=== PATIENT | male | born 1950 | race Caucasian/White ===

== ENCOUNTER 2020-04-17 09:17 | Day surgery (SDC) | payer MEDICARE ==
[2020-04-16 14:01] LABS: BASOPHILS % (AUTO) 0.7 % (0-1); EOSINOPHILS # (AUTO) 0.1 X10'3 (0-0.9); HEMATOCRIT 38.3 % (42.0-52.0); LYMPHOCYTES # (AUTO) 1.9 X10'3 (1.1-4.8); LYMPHOCYTES % (AUTO) 31.3 % (21-51); MEAN CORPUSCULAR HEMOGLOBIN 33.7 PG (27.0-31.0); MEAN CORPUSCULAR HGB CONC 33.8 g/dL (33.0-36.5); MEAN CORPUSCULAR VOLUME 99.6 FL (78-98); MEAN PLATELET VOLUME 7.1 FL (7.4-10.4); MONOCYTES # (AUTO) 0.7 X10'3 (0-0.9); MONOCYTES % (AUTO) 11.1 % (2-12); NEUTROPHILS # (AUTO) 3.3 X10'3 (1.8-7.7); NEUTROPHILS % (AUTO) 54.9 % (42-75); PLATELET COUNT 275 X10'3 (140-440); RED BLOOD COUNT 3.85 X10'6 (4.70-6.10); RED CELL DISTRIBUTION WIDTH 13.2 % (11.5-14.5)
[2020-04-16 14:08] LABS: ALBUMIN 4.1 G/DL (3.4-5.0); ANION GAP 8 (8-16); BLOOD UREA NITROGEN 20 MG/DL (7-18); BUN/CREATININE RATIO 18.9 (5.4-32.0); CALCIUM 9.4 MG/DL (8.5-10.1); CHLORIDE 105 MMOL/L (99-107); CREATININE 1.06 MG/DL (0.60-1.10); GLUCOSE 70 MG/DL (70-104); POTASSIUM 4.4 MMOL/L (3.5-5.1); SODIUM 138 MMOL/L (135-145); TOTAL CARBON DIOXIDE 25.5 MMOL/L (24-32); eGFR 69 ML/MIN
[2020-04-16 14:12] LABS: PARTIAL THROMBOPLASTIN TIME 26 SECONDS (22-32)
[2020-04-17] VITALS (11 sets, daily range): BP systolic 97–146; BP diastolic 48–72
[~2020-04-17] VITALS: Ht 177.8 cm; Wt 86.0 kg
[2020-04-17] MEDS ORDERED: acetylcysteine 200 MG/ml 4ml vial PO PRN (09:40)
[2020-04-17] MEDS ORDERED: diphenhydrAMINE 25mg capsule PO PRN (09:45)
[2020-04-17] MEDS ORDERED: normal saline 1,000 ML IV SCH (09:45)
[2020-04-17] MEDS ORDERED: SIMV-42 PO (09:55)
[2020-04-17] MEDS ORDERED: METF-437 PO (09:55)
[2020-04-17] MEDS ORDERED: ALBU18HF2 (09:55)
[2020-04-17] MEDS ORDERED: GLIP10TA11 PO (09:55)
[2020-04-17] MEDS ORDERED: ACET-1017 PO (09:58)
[2020-04-17] MEDS ORDERED: CHOL50004 PO (09:58)
[2020-04-17] MEDS ORDERED: NOVRI SQ (09:58)
[2020-04-17] MEDS ORDERED: ASPI-1265 PO (09:58)
[2020-04-17] MEDS ORDERED: midazolam 2 mg/2 ml injection ONE (10:00)
[2020-04-17] MEDS ORDERED: verapamil 2.5 mg/ml inj IV ONE (10:00)
[2020-04-17] MEDS ORDERED: heparin 1,000unit/ml 10ml vial 10 ML ONE (10:00)
[2020-04-17] MEDS ORDERED: LIDOcaine 1% (10mg/ml)w/preservative injection 20ml MDV ONE (10:00)
[2020-04-17] MEDS ORDERED: LIDOcaine/PRILOcaine 5gm cream TP ONE (10:00)
[2020-04-17] MEDS ORDERED: LORazepam 0.5 MG tablet PO PRN (10:00)
[2020-04-17] MEDS ORDERED: fentaNYL/PF 50MCG/1 ML 2ML syringe ONE (10:00)
[2020-04-17] MEDS ORDERED: nitroGLYCERIN-Tridil 50MG/D5W 250 ML IV ONE (10:00)
[2020-04-17] MEDS ORDERED: iohexol 350 MG/ML 50ML vial IV ONE (10:00)
[2020-04-17] MEDS ORDERED: iohexol 350MG/ML 100ml bottle IV ONE (10:01)
[2020-04-17 12:21] LABS: ISTAT HGB ART 12.6 g/dl (14.0-18.0); ISTAT Hct ART 37 %PCV (42-52); ISTAT O2 SATURATION ARTERIAL 97 % (95-98); ISTAT SOURCE ART
== END 2020-04-17 17:00 | disposition home or self-care (01) ==
LOC: SSTAY O 09:17
PROVIDERS: ATTEND Internal Medicine Cardiovascular Disease
DX: R94.39 Abnormal result of other cardiovascular function study (principal); I25.10 Atherosclerotic heart disease of native coronary artery without angina pectoris; J44.9 Chronic obstructive pulmonary disease, unspecified; E78.5 Hyperlipidemia, unspecified; I44.1 Atrioventricular block, second degree; I48.91 Unspecified atrial fibrillation; E11.9 Type 2 diabetes mellitus without complications; Z79.01 Long term (current) use of anticoagulants; Z79.84 Long term (current) use of oral hypoglycemic drugs; Z79.82 Long term (current) use of aspirin; Z79.899 Other long term (current) drug therapy; Z98.890 Other specified postprocedural states; Z87.891 Personal history of nicotine dependence; Z80.9 Family history of malignant neoplasm, unspecified
CPT/HCPCS: 36415; 80048; 82803; 82948; 85014; 85025; 85610; 85730; 93005; 93460; 99152; 99153; C1769; C1894; J1644; J2001; J2250; J3010; J7030; Q0163; Q9967; 76937; A4620; A5120; A6258; C1751; J3490

== ENCOUNTER 2022-09-03 11:58 | Day surgery (SDC) | payer MEDICARE, MEDICAID ==
[2022-08-28 12:07] LABS: BASOPHILS % (AUTO) 0.5 % (0-1); EOSINOPHILS # (AUTO) 0.2 X10'3 (0-0.9); EOSINOPHILS % (AUTO) 2.5 % (0-6); LYMPHOCYTES # (AUTO) 1.4 X10'3 (1.1-4.8); LYMPHOCYTES % (AUTO) 19.7 % (21-51); MEAN CORPUSCULAR HEMOGLOBIN 32.6 PG (27.0-31.0); MEAN CORPUSCULAR HGB CONC 33.3 g/dL (33.0-36.5); MEAN CORPUSCULAR VOLUME 98.2 FL (78-98); MEAN PLATELET VOLUME 7.1 FL (7.4-10.4); MONOCYTES # (AUTO) 0.6 X10'3 (0-0.9); MONOCYTES % (AUTO) 8.5 % (2-12); NEUTROPHILS # (AUTO) 4.7 X10'3 (1.8-7.7); NEUTROPHILS % (AUTO) 68.8 % (42-75); PRE OP HEMATOCRIT 39.8 % (42.0-52.0); PRE OP HEMOGLOBIN 13.2 g/dL (14.0-17.9); PRE OP PLATELET COUNT 323 X10'3 (140-440); RED BLOOD COUNT 4.06 X10'6 (4.70-6.10); RED CELL DISTRIBUTION WIDTH 13.8 % (11.5-14.5)
[2022-08-28 12:34] LABS: ALBUMIN 4.3 G/DL (3.4-5.0); ALBUMIN/GLOBULIN RATIO 1.2 (1.1-1.5); ALKALINE PHOSPHATASE 75 IU/L (46-116); BLOOD UREA NITROGEN 32 MG/DL (7-18); BUN/CREATININE RATIO 28.1 (10.0-20.0); CALCIUM 9.1 MG/DL (8.5-10.1); CHLORIDE 103 MMOL/L (99-107); CREATININE 1.14 MG/DL (0.60-1.10); PRE OP ALT 40 U/L (30-65); PRE OP ANION GAP 11 (8-16); PRE OP AST 21 U/L (10-37); PRE OP BILIRUB, TOTAL 0.4 MG/DL (0.0-1.0); PRE OP GLUCOSE 79 MG/DL (70-104); PRE OP POTASSIUM 4.3 MMOL/L (3.4-5.1); PRE OP SODIUM 139 MMOL/L (135-145); TOTAL CARBON DIOXIDE 25.5 MMOL/L (24-32); TOTAL PROTEIN 7.9 G/DL (6.4-8.2); eGFR 63 ML/MIN
[~2022-09-03] VITALS: Ht 180.3 cm; Wt 83.2 kg
[~2022-09-03 11:58] MED LIST: ALBU18HF2 IH; ASPI-1265 PO; DICL100G30 TOP; GLYB1.253 PO; INSU100I31 SQ; KEN0.1O TOP; LISI5TAB22 PO; METF-438 PO; SIMV10TA98 PO; TIOT18CA3 INH; albuterol 2.5 MG/3 ML nebule NEB ONE; cefazolin 2gm/D5W 100mL 100 ML IV ONE; famotidine 20mg tablet PO ONE; ringers solution, lacted 1,000 ML IV SCH
[2022-09-03 13:48] VITALS: BP 145/89
[2022-09-03] MEDS ORDERED: LIDOcaine 1% 30ml preserv. free vial ONE (16:57)
[2022-09-03] MEDS ORDERED: BUPIVAcaine/PF 2.5 mg/ml (0.25%) 30ml vial ONE (16:57)
[2022-09-03] MEDS ORDERED: sevoflurane 250ml liquid IH ONE (17:13)
[2022-09-03] MEDS ORDERED: fentaNYL/PF 50MCG/1 ML 2ML syringe ONE (17:15)
[2022-09-03] MEDS ORDERED: midazolam 1 mg/ML 2ml injection ONE (17:16)
[2022-09-03] MEDS ORDERED: propofol inj 20 ML IV ONE (17:16)
[2022-09-03] MEDS ORDERED: BUPIVAcaine/PF 2.5 mg/ml (0.25%) 30ml vial IJ ONE (17:44)
[2022-09-03] MEDS ORDERED: LIDOcaine 1% 30ml preserv. free vial IJ ONE (17:46)
[2022-09-03] MEDS ORDERED: HYDROcodone/acetaminophen 5mg/325mg tablet PO PRN (18:10)
[2022-09-03 18:16] VITALS: BP 131/79
--- NOTE | 2022-09-03 18:16 | NUR ---
Received from OR via [facility] , accompanied by Anesthesiologist ESPERANZA and report given by Anesthesiolgist. PATIENT WITH 20 GPIV IN RIGHT HAND RUNNING LR AT 100. ONE UMBILICAL DRESSING SITES WHERE DERMABOND IS PRESENT. VSS AT [facility] TIME. PATIENT DENIES PAIN. Addendum: 09/03/22 at 1825 by Tuan Soria RN, RN Amended: Links added.
[2022-09-03 18:20] VITALS: BP 110/59
[2022-09-03] MEDS ORDERED: proCHLORperazine 10 MG/2 ml inj IV PRN (18:20)
[2022-09-03] MEDS ORDERED: morphine 4 MG/ML inj SYRINge IV PRN (18:20)
[2022-09-03] MEDS ORDERED: ondansetron/PF 4mg/2ml inj IV PRN (18:20)
[2022-09-03] MEDS ORDERED: meperidine/PF 25mg/ml syringe IV PRN ×3 (18:20)
[2022-09-03] MEDS ORDERED: morphine 2 MG/ML inj. syringe IV PRN (18:20)
[2022-09-03] MEDS ORDERED: ringers solution, lacted 1,000 ML IV SCH (18:20)
[2022-09-03 18:30] VITALS: BP 110/57
[2022-09-03 18:40] VITALS: BP 122/66
[2022-09-03 18:50] VITALS: BP 133/66
--- NOTE | 2022-09-03 18:56 | NUR ---
ALL DISCHARGE INSTRUCTIONS COVERED WITH PATIENT AND EX . ALL QUESTIONS ANSWERED. VSS. DENIES PAIN. ASSISTED IN DRESSING AND TAKEN OUT VIA WHEELCHAIR. EX DROVE PATIENT HOME. DRESSING TO UMBILICUS STILL GLUED SHUT AND WAS CDI. WAS ABLE TO STAND, AMBULATE AND ENTER PASSENGER SIDE OF THE VEHICLE WITH NO ASSIST. Addendum: 09/03/22 at 6 by Tuan Soria RN, RN Amended: Links added.
== END 2022-09-03 18:56 | disposition home or self-care (01) ==
LOC: PAS 11:58
PROVIDERS: ATTEND Surgery
DX: K43.0 Incisional hernia with obstruction, without gangrene (principal); J44.9 Chronic obstructive pulmonary disease, unspecified; I10 Essential (primary) hypertension; E11.9 Type 2 diabetes mellitus without complications; E78.5 Hyperlipidemia, unspecified; Z79.4 Long term (current) use of insulin; Z79.82 Long term (current) use of aspirin; Z79.899 Other long term (current) drug therapy; Z98.890 Other specified postprocedural states; Z87.891 Personal history of nicotine dependence; Z83.3 Family history of diabetes mellitus
CPT/HCPCS: 36415; 49614; 80053; 82948; 85025; 93005; J0690; J2250; J2704; J3010; J3490; J7030; J7120; Z7506; Z7508; Z7512; A4215; A4618; A7000